=== PATIENT | female | born 1975 | race Caucasian/White ===

== ENCOUNTER 2020-06-29 04:40 | Outpatient (CLI) | payer BC, SELFPAY ==
[2020-06-29 19:32] LABS: SARS-CoV-2 RNA PCR Negative
== END 2020-06-29 04:41 | disposition home or self-care (01) ==
LOC: ANHCOVIDDT 04:41
PROVIDERS: PCP Family Medicine; Visit Provider Plastic Surgery
DX: Z01.812 Encounter for preprocedural laboratory examination (principal); Z20.822 Contact with and (suspected) exposure to COVID-19
CPT/HCPCS: C9803; U0003

== ENCOUNTER 2020-07-03 02:39 | Day surgery (SDC) | payer BC, SELFPAY ==
[2020-06-27 13:21] VITALS: BMI 36.1
[2020-07-03] VITALS (9 sets, daily range): BP systolic 92–136; BP diastolic 55–87; PULSE 50–91; RESP 12–16; TEMP 36.5–36.6; O2SAT 93–100
--- NOTE | ~2020-07-03 | XR_ITS ---
EXAMINATION: XR surgery orthopedic DATE: 07/03/2020 14:48 INDICATION: Left thumb trapezium resection TECHNIQUE: 2 fluoroscopic images of portions of the left hand were obtained during procedure performe d by Dr. Mai. Radiologist was not present for the imaging or procedure. The amount of fluoroscopy t kamran used during this procedure was 1.7 minutes. COMPARISON: None. FINDINGS: Postoperative change of likely first carpal metacarpal suspension arthroplasty with resection of the trapezium. There is suggestion of a residual small bone fragment at the resection bed. Lucency at the base of the first metacarpal suggestive of a suture anchor site. Correlate with operative history. M ild osteoarthritis at the first and second metacarpophalangeal and first interphalangeal joints. Expe cted small amount of soft tissue gas at the operative bed. IMPRESSION: 1. Fluoroscopy utilized during trapezium resection. See procedure note for further detail. Reviewed, dictated and finalized at location A. K MECHANIC IMPRESSION: 1. Fluoroscopy utilized during trapezium resection. See procedure note for furt her detail.
--- NOTE | 2020-07-03 07:40 | WPDHPUPDATE1 ---
History and Physical Update Update Date/Time: 07/03/20 07:40 History and Physical has been reviewed, including an updated exam of the patient. There are NO changes in the patient's condition. Risks, benefits, and alternatives have been discussed and questions answered. Patient agrees to proceed with procedure.
[2020-07-03] MEDS: LACTATED RINGERS 1,000 ML 30 ML IV CONT ×2 (09:33→14:55)
--- NOTE | 2020-07-03 10:04 | SUR.PREOP ---
Discussed delay with patient approx 1 hour. Patient called her and told him also.
--- NOTE | 2020-07-03 11:17 | SUR.PREOP ---
Up to bathroom. Discussed continued delay now of 1 1/2 hours.
--- NOTE | 2020-07-03 12:09 | P.PNAN_ITS ---
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 Patient Data Age: 45 Gender: F Height: 5 ft 5 in Weight: 101.5 kg Last Vital Signs Temp 97.8 F 07/03/20 09:38 Pulse 50 L 07/03/20 09:38 Resp 16 07/03/20 09:38 BP 116/77 07/03/20 09:38 Pulse Ox 100 07/03/20 09:38 Allergies Allergy/AdvReac Type Severity Reaction Status Date / Time No Known Allergies Allergy Verified 07/03/20 09:12 Home Medications Medication Instructions Recorded Confirmed Type eletriptan 40 mg PO DAILY PRN 06/27/20 07/03/20 History ergocalciferol (vitamin D2) 1,250 mcg PO MONTHLY 06/27/20 06/27/20 History [Vitamin D2] ergocalciferol (vitamin D2) 400 unit PO DAILY 06/27/20 07/03/20 History [Vitamin D2] estradiol 1 mg PO DAILY 06/27/20 07/03/20 History mecobalamin (vitamin B12) 1,000 mcg PO DAILY 06/27/20 07/03/20 History multivitamin [Daily Multivitamin] 1 tablet PO DAILY 06/27/20 07/03/20 History pantoprazole 40 mg PO BID 06/27/20 07/03/20 History Patient hx anesthesia problems: none Family hx anesthesia problems: none [facility] Past Medical History Medical History (Updated 07/03/20 @ 12:12 by Shaji Nobles MD) GERD (gastroesophageal reflux disease) Seizure none since 2009 Surgical History Surgical History (Updated 07/03/20 @ 12:12 by Shaji Nobles MD) History of gastric bypass Social History Social History Smoking status: Never smoker Living arrangements: with family Spiritual care concerns: No Anes - Eval Final PreProcedure Day of Procedure 07/03/20 12:09 Patient weight: obese Heart: regular rate and rhythm Lungs: clear to auscultation Airway: Mallampati scale class II Neurological: alert and oriented Last oral intake: >/= 8 hours ASA classification: III Emergent: no Anesthetic plan: proceed Anesthesia type and monitoring: general LMA and standard monitoring Informed Consent: The patient's anesthetic plan and its attendant risks and b enefits were discussed with the patient/family/POA. Questions were solicited and answers provided to the satisfaction of the patient/family/POA.
[2020-07-03] MEDS: ACETAMINOPHEN 500 MG TABLET 1000 MG PO (12:20)
[2020-07-03] MEDS: ceFAZolin SODIUM 1 GM VIAL 2 GM IV PUSH (12:33)
[2020-07-03] MEDS: LIDO 1%/EPINEPHRINE 1:100,000 50 ML VIAL INFILTRATE (12:57)
--- NOTE | 2020-07-03 15:15 | P.OPB_ITS ---
Procedure Note - Brief Procedure Note - Brief Date of procedure: 07/03/20 Pre-op diagnosis: Left First CMC Joint OA Post-op diagnosis: same Procedure performed: Left trapezium resection arthroplasty with InternalBrace. Anesthesia: GETA Surgeon: Israel Mai MD Inspector And Clerk: Donte Estimated blood loss (mL): 5 Tourniquet time (min): 70 Drains: No Packing: No Pathology: none sent Complications: No immediate complications Condition: stable Disposition: PACU
[2020-07-03] MEDS: fentaNYL CITRATE INJ (*CRX) 100 MCG/2 ML VIAL 25 MCG IV PUSH ×4 (15:36→15:49)
[2020-07-03] MEDS: oxyCODONE HCL (*CRX) 5 MG TAB IR PO (16:55)
[2020-07-03] MEDS: HYDROcodone/acetaminophen (*CRX) 5-325 MG TABLET 1 TAB PO (17:46)
--- NOTE | 2020-07-03 19:35 | P.OP_ITS ---
Procedure Note - Detailed Date of procedure: 07/03/20 Pre-op diagnosis: Left First CMC Joint OA Post-op diagnosis: same Procedure performed: Left trapezium resection arthroplasty with Arthrex internalBrace Description of procedure: The patient's left wrist was marked as she waited in the holding area. She was taken to the operating room and placed supine on the operating table. A time-out was held and confirmed she was given general end otracheal anesthesia. The extremity was prepped and draped in usual fashion. The site was carefully marked for our incision. This area was infiltrated with 1% lidocaine with epinephrine. The tourniquet was inflated to 250 mmHg. The incision was made as marked and dissection was carried bluntly through this subcutaneous tissue taking care to isolate and protect cutaneous nerves. The carpal metacarpal joint joint was incised between the extensor pollicis brevis and the abductor pollicis longus. A couple of very large osteophytes were removed. These had been noted on x-ray. The trapezium was dissected around its periphery until it could be lifted out in pieces. C-arm images confirmed the adequate trapeziectomy. Dissection of the radial base of the 2nd metacarpal exposed the point of anchor placement. The plan was to use a new device for placement of the internal brace. This failed on 1st attempt to lodge the anchor into the medullary canal. On the 2nd attempt the far cortex of the metacarpal was opened with the appropriate drill and the ?all suture anchor was successfully placed. The appropriate site at the base of the 1st metacarpal was drilled and the anchor lock placed over the internal brace which consisted of two 0 fiber wires. This successfully stabilize the metacarpal. The capsule was repaired with 3-0 Vicryl sutures. Thenar muscles were reattached to the extensor tendons. A bulky soft bandage with a thumb spica splint was applied and the patient was discharged from the operating room stable condition. She had been given 2 g of Ancef preop as well as Tylenol 1000 mg by mouth. She is discharged home with instructions in wound care and follow-up her 1st dressing change will be in my office in approximately 5 day. She was discharged with a prescription for hydrocodone. Surgeon: Israel Mai MD
== END 2020-07-03 18:30 | disposition home or self-care (01) ==
PROVIDERS: PCP Family Medicine; Visit Provider Plastic Surgery
PROC: (CPT 25447; principal; 2020-07-03 11:00)
DX: M18.12 Unilateral primary osteoarthritis of first carpometacarpal joint, left hand (principal); K21.9 Gastro-esophageal reflux disease without esophagitis; G40.909 Epilepsy, unspecified, not intractable, without status epilepticus; E66.9 Obesity, unspecified; Z68.37 Body mass index [BMI] 37.0-37.9, adult
CPT/HCPCS: 25447; A9270; C1713; C9803; J0690; J1100; J1170; J2250; J2405; J2704; J3010; J7120; U0003

== ENCOUNTER 2021-04-15 06:33 | Outpatient (CLI) | payer BC, SELFPAY ==
--- NOTE | ~2021-04-15 | MR_ITS ---
EXAMINATION: MR lumbar spine wo con DATE: 04/15/2021 08:25 INDICATION: Lumbar radiculopathy. TECHNIQUE: Magnetic resonance imaging (MRI) of the lumbar spine was performed without intravenous con trast. Sequences included sagittal T2-weighted FSE, sagittal T2-weighted FS FSE, sagittal T1-weighted FSE, and axial T2-weighted FSE. COMPARISON: Lumbar spine radiographs 10/09/2014 FINDINGS: There is 6 degrees levocurvature of lumbar spine. There are Schmorl's nodes at most levels. There is mild chronic anterior wedging of T11 and T12 vertebral bodies. There is severely decreased disc height at L3-L4, L4-L5, and L5-S1 with endplate remodeling. The distal spinal cord signal intens ity is normal. The conus medullaris is at T12-L1. The following disc levels are specifically discusse d: L1-L2: The disc does not extend beyond the endplate margin. There is mild bilateral facet joint osteo arthritis. There is no neural foraminal stenosis. There is no central canal stenosis. L2-L3: The disc does not extend beyond the endplate margin. There is mild bilateral facet joint osteo arthritis. There is no neural foraminal stenosis. There is no central canal stenosis. L3-L4: The disc is bulging and has an annular fissure. There is mild bilateral facet joint osteoarthr itis. There is mild bilateral neural foraminal stenosis. There is mild central canal stenosis. L4-L5: The disc is bulging and has an annular fissure. There is severe bilateral facet joint osteoart hritis. There is moderate right and mild left neural foraminal stenosis. There is no central canal st enosis. L5-S1: The disc is bulging and has an annular fissure. There is severe bilateral facet joint osteoart hritis. There is a chronic left L5 pars defect. There are changes of left hemilaminotomy. There is mi ld right and moderate left neural foraminal stenosis. There is mild central canal stenosis. IMPRESSION: 1. Severe lumbar spondylosis. 2. Chronic left L5 pars defect. Reviewed, dictated and finalized at location A.
== END 2021-04-15 06:34 | disposition home or self-care (01) ==
PROVIDERS: PCP Family Medicine
DX: M54.16 Radiculopathy, lumbar region (principal); M47.816 Spondylosis without myelopathy or radiculopathy, lumbar region; M51.86 Other intervertebral disc disorders, lumbar region
CPT/HCPCS: 72148

== ENCOUNTER 2021-09-16 08:31 | Outpatient (CLI) | payer BC, SELFPAY ==
--- NOTE | ~2021-09-16 | MR_ITS ---
EXAMINATION: MR ankle LT wo/w con DATE: 09/16/2021 10:24 INDICATION: Disorder. Stress fracture with lateral left ankle pain TECHNIQUE: Magnetic resonance imaging (MRI) of the left ankle was performed without intravenous contr ast. Sequences included sagittal, coronal, and axial proton-density weighted fast spin echo without a nd with fat saturation. COMPARISON: None. FINDINGS: Medial ankle ligaments: The superficial deltoid ligaments as well as the spring ligament are normal. There is loss of the nor ekta more sharply defined striated pattern of the deep deltoid ligament without significant surround ing edema consistent with scarring related to chronic sprain. Lateral ankle ligaments: The anterior and posterior inferior tibiofibular ligaments are normal. The calcaneofibular and licensing court magistrate ior talofibular ligaments are normal. There is mild thickening without increased ligament signal or s urrounding edema at the anterior talofibular ligament consistent with additional scarring related to chronic sprain. Tendons: Achilles tendon is normal. The peroneus longus and brevis tendons are normal. The tibialis anterior a nd extensor hallucis longus and extensor digitorum longus tendons are normal. The tibialis posterior, flexor digitorum longus and flexor hallucis longus tendons are normal. Plantar fascia: Mild thickening of the proximal plantar aponeurosis with large plantar calcaneal spur at its calcanea l origin. No surrounding edema to suggest acute plantar fasciitis. Bones/other: Bone alignment is normal. No fracture or stress reaction. Polyarticular osteoarthritis, mild to moder ate severity with subarticular cystic and edema-like marrow signal change at the navicular cuneiform joint and mild at the talonavicular joint and first-fourth tarsal metatarsal joints. There is some me tallic magnetic field artifact centered superficially, at or near the skin surface at the dorsum of t he midfoot which is of indeterminate etiology or significance. Correlate for history of prior penetra ting trauma or surgery at this location. No abnormally enhancing masses identified. Fluid: Physiologic amount fluid in the joint space. There is a small loculated fluid situated along the dist al margin but not appearing to develop the peroneus longus tendon at its entrance to the groove of th e cuboid iliana which appears more likely to represent a ganglion cyst communicating with the fifth t arsal metatarsal joint rather than peroneal tenosynovitis. No bursitis, tenosynovitis or other abnorm al fluid collections. IMPRESSION: 1. No stress fracture/reaction or other acute osseous abnormality. 2. Mild scarring consistent with chronic sprains of the deep deltoid and anterior talofibular ligamen ts. 3. The articular osteoarthritis, mild to moderate at the naviculocuneiform and mild at the talonavicu lar and several tarsal metatarsal joints. 4. Small loculated fluid collection along the peroneal tendon at the cuboid iliana which appears more likely to represent a ganglion cyst arising from the fifth tarsal metatarsal joint rather than peron eal tenosynovitis. Reviewed, dictated and finalized at location A. IMPRESSION: 1. No stress fracture/reaction or other acute osseous abnormality. 2. Mild scarring consistent with chronic sprains of the deep deltoid and anteri or talofibular ligaments. 3. The articular osteoarthritis, mild to moderate at the naviculocuneiform and mild at the talonavicular and several tarsal metatarsal joints. 4. Small loculated fluid collection along the peroneal tendon at the cuboid pul david which appears more likely to represent a ganglion cyst arising from the fif th tarsal metatarsal joint rather than peroneal tenosynovitis.
[2021-09-16 09:42] LABS: Estimated Glomerular Filt Rate > 60
== END 2021-09-16 08:32 | disposition home or self-care (01) ==
LOC: ANHIMG 08:34
PROVIDERS: PCP Family Medicine; Visit Provider Podiatrist Foot & Ankle Surgery
DX: M89.8X7 Other specified disorders of bone, ankle and foot (principal); M19.072 Primary osteoarthritis, left ankle and foot
CPT/HCPCS: 73723; A9577

== ENCOUNTER 2022-02-02 09:36 | Outpatient (CLI) | payer BC, SELFPAY ==
--- NOTE | ~2022-02-02 | XR_ITS ---
EXAMINATION: XR shoulder LT min 2V INDICATION: Left shoulder pain TECHNIQUE: Three views of the left shoulder are submitted. COMPARISON: None FINDINGS: Normal alignment. No fracture. Glenohumeral and acromioclavicular joint spaces are normal. Soft tissues are unremarkable. IMPRESSION: 1. No acute osseous abnormality. Reviewed, dictated and finalized at location A.
== END 2022-02-02 09:37 | disposition home or self-care (01) ==
LOC: CHSIMG 09:38
PROVIDERS: PCP Family Medicine; Visit Provider Orthopaedic Surgery
DX: M25.512 Pain in left shoulder (principal)
CPT/HCPCS: 73030

== ENCOUNTER 2022-09-24 09:40 | Outpatient (CLI) | payer BC, SELFPAY ==
--- NOTE | 2022-09-24 11:30 | NEURO_ITS ---
Impression: # Complains of left foot pain,at the site of old ankle injury. # Normal nerve conduction study. # Normal needle/EMG exam. # Clinical correlation recommended. Motor Nerve Conduction Lower Extremities Peroneal Nerve Conduction Velocity (m/sec) Terminal Latency (msec) Response Voltage(mV) Popliteal space-Ankle Ankle Extensor Dig Brevis Popliteal space Ankle Right 49 4.0 2 2 Left 47 4.3 1 1 Tibial Nerve Conduction Velocity (m/sec) Terminal Latency (msec) Response Voltage(mV) Popliteal space-Ankle Ankle-Extensor Dig Brevis Popliteal space Ankle Right 47 4.2 2 2 Left 51 4.7 2 3 F-waves Peroneal Nerve (ms) Tibial Nerve (ms) Right 49.2 50.5 Left 48.8 51.5 Sensory Nerve Conduction Lower Extremities Sural Nerve Stimulation Terminal Latency (msec) Ankle Response Voltage (uV) Ankle Response Velocity (m/sec) Right 3.7 13 43 Left 3.9 5 42 Superficial Peroneal Nerve Stimulation Terminal Latency (msec) Ankle Response Voltage (uV) Ankle Response Velocity (m/sec) Right 3.5 12 46 Left 3.1 11 52 Left Right Muscles Examined Fibrillation Fasciculation Scarcity Voltage Duration Left Right Left Right Left Right Left Right Left Right X X Ant Tibialis X X Gastroc X X Fibularis Long X X Flex Dig Long X X Ext Dig Brev Abd Hallucis Quadriceps Paraspinals MTDD
== END 2022-09-24 09:41 | disposition home or self-care (01) ==
PROVIDERS: PCP Family Medicine; Visit Provider Podiatrist Foot & Ankle Surgery
DX: G58.8 Other specified mononeuropathies (principal)
CPT/HCPCS: 95886; 95910

== ENCOUNTER 2024-03-01 01:26 | Day surgery (SDC) | payer BC, SELFPAY ==
[2024-02-08 14:59] VITALS: BMI 30.4
[2024-03-01 11:00] VITALS: BP 125/61; PULSE 61; RESP 16; O2SAT 100
[2024-03-01] MEDS: LACTATED RINGERS 1,000 ML 150 ML IV CONT (11:19)
--- NOTE | 2024-03-01 11:40 | WPDANESEPPF ---
Anes - Initial Pre Proc Eval Procedure: Operation Date: 03/01/24 12:30 Proposed Procedures p Esophagogastroduodenoscopy & Colonoscopy - Yaniv Wright MD Date/Time: 03/01/24 11:40 Surgeon: Yaniv Wright MD Pre Op Diagnosis: Melgar's, Abd. pain, Gastroenteritis/colitis,GERD Patient Data Age: 48 Gender: F Height: 1.65 m Weight: 83.6 kg Allergies Allergy/AdvReac Type Severity Reaction Status Date / Time NSAIDS (Non-Steroidal Allergy Unknown Unknown Verified 03/01/24 11:09 Anti-Inflamma Home Medications Medication Instructions Recorded Confirmed Type eletriptan 40 mg tablet 40 mg PO DAILY PRN Migraine 06/27/20 03/01/24 History Headache ergocalciferol (vitamin D2) 400 400 unit PO DAILY 06/27/20 03/01/24 History unit capsule mecobalamin (vitamin B12) 1,000 1,000 mcg PO DAILY 06/27/20 03/01/24 History mcg chewable tablet multivitamin 1 tablet PO DAILY 06/27/20 03/01/24 History irbesartan 150 mg tablet 75 mg PO DAILY 02/05/22 03/01/24 History semaglutide (weight loss) [Wegovy] 2.4 mg subcut WEEKLY 02/05/22 03/01/24 History sertraline 50 mg tablet 50 mg PO DAILY 02/05/22 03/01/24 History colestipol 1 gram tablet (Colestid) 1 g PO BID #60 tabs 01/11/24 03/01/24 Rx estradiol 0.5 mg/0.5 gram (0.1 %) 1 packet transdermal DAILY 01/11/24 03/01/24 History transdermal gel packet lansoprazole 30 mg capsule,delayed 30 mg PO BID #60 caps 01/11/24 03/01/24 Rx release Patient hx anesthesia problems: none Family hx anesthesia problems: none Results Review: All pre-operative results and documents have been reviewed as part of the pre-operative evaluation. [facility] Past Medical History Medical History (Updated 01/25/24 @ 16:02 by Jose Chi MD) Anxiety FH: total abdominal hysterectomy and bilateral salpingo-oophorectomy GERD (gastroesophageal reflux disease) Hearing loss HTN (hypertension) Impingement syndrome, shoulder, left Left shoulder pain Seizure none since 2009 Tendinitis of left rotator cuff Vertigo Surgical History Surgical History (Updated 01/11/24 @ 15:43 by Sintia Ahumada APRN) History of carpal tunnel release 2005 History of cholecystectomy [address] Oliver History of gastric bypass 2015 History of hysterectomy [address] Powers Family History Family History Other Arthritis Asthma Heart disease Hypertension Social History Social History Smoking status: Never smoker Alcohol intake: never Substance use: never Substance use type: does not use Living arrangements: with family Occupation/Education: occupation Gender identity (if verbalized by the patient): Female Spiritual care concerns: No Anes - Eval Final PreProcedure Day of Procedure 03/01/24 11:40 Patient weight: obese Heart: regular rate and rhythm Lungs: clear to auscultation Neurological: alert and oriented Last oral intake: >/= 8 hours Emergent: no Anesthetic plan: proceed Anesthesia type and monitoring: general GIVS and standard monitoring Results Review: All pre-operative results and documents have been reviewed as part of the pre-operative evaluation. Informed Consent: The patient's anesthetic plan and its attendant risks and benefits were discussed with the patient/family/POA. Questions were solicited and answers provided to the satisfaction of the patient/family/POA.
--- NOTE | 2024-03-01 11:43 | PM.HPGS ---
History of Present Illness History of Present Illness Consent: Risks, benefits, and alternatives have been discussed and questions answered. Patient agrees to proceed with procedure. Chief complaint: Pacheco's, Abd. pain, Gastroenteritis/colitis,GERD Narrative: Rhys Iyer is a 48 year old female here for egd and colonoscopy, she had gastric sleeve (2014), cholecystectomy (2009), and total hysterectomy with chronic diarrhea and fecal incontinence, cholestipol not helping, stool sample for EPI and calprotectin normal. She was told that last egd possible Pacheco's. using now lansoprazole. Review of Systems Review of Systems: All systems reviewed & are unremarkable except as noted in HPI and below PMFSH Past Medical History Medical History (Updated 01/25/24 @ 16:02 by Jose Chi MD) Anxiety FH: total abdominal hysterectomy and bilateral salpingo-oophorectomy GERD (gastroesophageal reflux disease) Hearing loss HTN (hypertension) Impingement syndrome, shoulder, left Left shoulder pain Seizure none since 2009 Tendinitis of left rotator cuff Vertigo Surgical History Surgical History (Updated 01/11/24 @ 15:43 by Sintia Ahumada, DOTTIE) History of carpal tunnel release 2005 History of cholecystectomy [address] Oliver History of gastric bypass 2014 History of hysterectomy [address] Powers Family History Family History Other Arthritis Asthma Heart disease Hypertension Social History Social History Smoking status: Never smoker Alcohol intake: never Substance use: never Substance use type: does not use Living arrangements: with family Occupation/Education: occupation Gender identity (if verbalized by the patient): Female Spiritual care concerns: No Meds Home Medications and Allergies Home Medications Medication Instructions Recorded Confirmed Type eletriptan 40 mg tablet 40 mg PO DAILY PRN Migraine 06/27/20 03/01/24 History Headache ergocalciferol (vitamin D2) 400 400 unit PO DAILY 06/27/20 03/01/24 History unit capsule mecobalamin (vitamin B12) 1,000 1,000 mcg PO DAILY 06/27/20 03/01/24 History mcg chewable tablet multivitamin 1 tablet PO DAILY 06/27/20 03/01/24 History irbesartan 150 mg tablet 75 mg PO DAILY 02/05/22 03/01/24 History semaglutide (weight loss) [Wegovy] 2.4 mg subcut WEEKLY 02/05/22 03/01/24 History sertraline 50 mg tablet 50 mg PO DAILY 02/05/22 03/01/24 History colestipol 1 gram tablet (Colestid) 1 g PO BID #60 tabs 01/11/24 03/01/24 Rx estradiol 0.5 mg/0.5 gram (0.1 %) 1 packet transdermal DAILY 01/11/24 03/01/24 History transdermal gel packet lansoprazole 30 mg capsule,delayed 30 mg PO BID #60 caps 01/11/24 03/01/24 Rx release Allergies Allergy/AdvReac Type Severity Reaction Status Date / Time NSAIDS (Non-Steroidal Allergy Unknown Unknown Verified 03/01/24 11:09 Anti-Inflamma Exam Const: General: comfortable and no acute distress HENMT: Face/Nose/Sinus: Normal nares present Eyes: General: appearance normal, both eyes and all related structures Neck: Neck: no JVD Resp: Auscultation: clear to auscultation bilaterally Cardio: Rate: regular rate Rhythm: regular rhythm GI: Inspection: non-distended GI Palp: Yes Soft to palpation Skin: General skin exam: normal color Neuro: General: gait normal Speech: normal speech Extrem: General: normal to inspection Psych: Mental Status: mental status grossly normal Assessment and Plan Assessment and plan (1) GERD (gastroesophageal reflux disease): Code(s): K21.9 - Gastro-esophageal reflux disease without esophagitis Status: Acute Assessment and Plan: egd with bx on ppi will check if pacheco's (2) Chronic diarrhea: Code(s): K52.9 - Noninfective gastroenteritis and colitis, unspecified Status: Acute
--- NOTE | 2024-03-01 11:55 | SUR.OPER ---
EGD [id number]. Colon start time 1157.
[2024-03-01 12:12] VITALS: BP 102/43; PULSE 72; RESP 18; O2SAT 97
[2024-03-01 12:22] VITALS: BP 92/53; PULSE 60; RESP 18; O2SAT 100
[2024-03-01 12:32] VITALS: BP 100/56; PULSE 55; RESP 18; O2SAT 100
== END 2024-03-01 12:50 | disposition home or self-care (01) ==
PROVIDERS: PCP Family Medicine; Referring Provider Nurse Practitioner; Visit Provider Internal Medicine Gastroenterology
PROC: 0DJ08ZZ Inspection of Upper Intestinal Tract, Via Natural or Artificial Opening Endoscopic (ICD-10-PCS; CPT 43235; principal; 2024-03-01 12:30)
DX: K29.50 Unspecified chronic gastritis without bleeding (principal); K29.80 Duodenitis without bleeding; D12.3 Benign neoplasm of transverse colon; K64.8 Other hemorrhoids; R19.7 Diarrhea, unspecified; Z98.84 Bariatric surgery status; I10 Essential (primary) hypertension; K21.9 Gastro-esophageal reflux disease without esophagitis; F41.9 Anxiety disorder, unspecified; Z79.85 Long-term (current) use of injectable non-insulin antidiabetic drugs; E66.9 Obesity, unspecified; Z68.30 Body mass index [BMI] 30.0-30.9, adult
CPT/HCPCS: 45385; 45380; 43239; 88305; J2001; J2704; J7120

== ENCOUNTER 2024-05-10 12:49 | Outpatient (CLI) | payer BC, SELFPAY ==
--- NOTE | 2024-05-10 13:25 | NEURO_ITS ---
Impression: # Complains of right hand numbness # Normal Nerve Conduction Study. # No Carpal Tunnel Syndrome or ulnar neuropathy. # Normal needle/EMG exam. Nerve Conduction Studies Anti Sensory Summary Table Stim Site NR Peak (ms) P-T Amp (?V) Site1 Site2 Delta-P (ms) Dist (cm) Everardo (m/s) Right Median Anti Sensory (2-3nd Digit) Wrist 2.6 87.0 Wrist 2-3nd Digit 2.6 14.0 54 Wrist 2.5 85.1 Wrist 2-3nd Digit 2.6 14.0 54 Right Radial Anti Sensory (Base 1st Digit) Wrist 2.3 16.0 Wrist Base 1st Digit 2.3 0.0 Right Ulnar Anti Sensory (5th Digit) Wrist 2.4 61.2 Wrist 5th Digit 2.4 14.0 58 Motor Summary Table Stim Site NR Onset (ms) O-P Amp (mV) Site1 Site2 Delta-0 (ms) Dist (cm) Everardo (m/s) Right Median Motor (Abd Poll Brev) Wrist 3.3 10.8 Elbow Wrist 5.5 29.0 53 Elbow 8.8 11.5 Right Ulnar Motor (Abd Dig Minimi) Wrist 2.1 4.6 A Elbow Wrist 4.9 27.0 55 A Elbow 7.0 5.5 F Wave Studies NR F-Lat (ms) L-R F-Lat (ms) Right Median (Mrkrs) (Abd Poll Brev) 26.96 Right Ulnar (Mrkrs) (Abd Dig Min) 24.18 EMG Side Muscle Nerve Root Ins Act Fibs Amp Dur Recrt Comment Right 1stDorInt Ulnar C8-T1 Nml Nml Nml Nml Nml Right Ext Indicis Radial (Post Int) C7-8 Nml Nml Nml Nml Nml Right Ext Digitorum Radial (Post Int) C7-8 Nml Nml Nml Nml Nml Right BrachioRad Radial C5-6 Nml Nml Nml Nml Nml Right PronatorTeres Median C6-7 Nml Nml Nml Nml Nml Right Abd Poll Brev Median C8-T1 Nml Nml Nml Nml Nml Right ABD Dig Min Ulnar C8-T1 Nml Nml Nml Nml Nml MTDD
--- NOTE | 2024-05-10 14:30 | NEURO_ITS ---
Impression: # Complains of right hand and finger numbness. Non-diabetic. # Normal Nerve Conduction Study. # No Carpal Tunnel Syndrome or ulnar neuropathy. # Ulnar to median cross innervation noted. # Normal needle/EMG exam. Nerve Conduction Studies Anti Sensory Summary Table Stim Site NR Peak (ms) P-T Amp (?V) Site1 Site2 Delta-P (ms) Dist (cm) Everardo (m/s) Right Median Anti Sensory (2-3nd Digit) Wrist 2.6 87.0 Wrist 2-3nd Digit 2.6 14.0 54 Wrist 2.5 85.1 Wrist 2-3nd Digit 2.6 14.0 54 Right Radial Anti Sensory (Base 1st Digit) Wrist 2.3 16.0 Wrist Base 1st Digit 2.3 0.0 Right Ulnar Anti Sensory (5th Digit) Wrist 2.4 61.2 Wrist 5th Digit 2.4 14.0 58 Motor Summary Table Stim Site NR Onset (ms) O-P Amp (mV) Site1 Site2 Delta-0 (ms) Dist (cm) Everardo (m/s) Right Median Motor (Abd Poll Brev) Wrist 3.3 10.8 Elbow Wrist 5.5 29.0 53 Elbow 8.8 11.5 Right Ulnar Motor (Abd Dig Minimi) Wrist 2.1 4.6 A Elbow Wrist 4.9 27.0 55 A Elbow 7.0 5.5 F Wave Studies NR F-Lat (ms) L-R F-Lat (ms) Right Median (Mrkrs) (Abd Poll Brev) 26.96 Right Ulnar (Mrkrs) (Abd Dig Min) 24.18 EMG Side Muscle Nerve Root Ins Act Fibs Amp Dur Recrt Comment Right 1stDorInt Ulnar C8-T1 Nml Nml Nml Nml Nml Right Ext Indicis Radial (Post Int) C7-8 Nml Nml Nml Nml Nml Right Ext Digitorum Radial (Post Int) C7-8 Nml Nml Nml Nml Nml Right BrachioRad Radial C5-6 Nml Nml Nml Nml Nml Right PronatorTeres Median C6-7 Nml Nml Nml Nml Nml Right Abd Poll Brev Median C8-T1 Nml Nml Nml Nml Nml Right ABD Dig Min Ulnar C8-T1 Nml Nml Nml Nml Nml MTDD
== END 2024-05-10 12:50 | disposition home or self-care (01) ==
LOC: ANHNEURO 12:50
PROVIDERS: PCP Family Medicine; Visit Provider Plastic Surgery
DX: G56.01 Carpal tunnel syndrome, right upper limb (principal); G56.21 Lesion of ulnar nerve, right upper limb
CPT/HCPCS: 95886; 95909

== ENCOUNTER 2024-09-27 00:04 | Day surgery (SDC) | payer BC, SELFPAY ==
[2024-09-19 08:23] VITALS: BMI 30.8
--- NOTE | 2024-09-19 08:30 | PC.NURSE ---
Report to the Outpatient Waiting Room, entrance under the green pavilion located off [facility], at time _0630_ on date _[phone]_. Planned Procedure Time: _0830_.? Time changes happen often and if your time is changed the preop area will call you the afternoon before. - You and your visitor will be asked to self-screen and do not enter if you have any COVID symptoms. Please call surgeon if you need to reschedule. - A mask is optional within the hospital at this time. - No food or drink from midnight until time of surgery and no smoking, or chewing tobacco (or any form of nicotine). No chewing gum, candy or mints. Take only the following medications with a SIP of water on the morning of surgery: ____Sertraline DO NOT STOP ANY OF YOUR OTHER PRESCRIPTION MEDICATIONS PRIOR TO SURGERY EXCEPT THE FOLLOWING Hold all vitamins and supplements for 3 days per anesthesiologist. Medications to discontinue per physician Wegovy Date to take last dose Stop now Please no make-up, nail danish, hairspray, perfume, deodorant, or body powder the day of surgery.? No jewelry (including any body piercings) or valuables the day of surgery, leave them at home.? Please take a shower or bath the night before, or the morning of, surgery with an antibacterial soap.? Wear comfortable, loose fitting clothing.? - Jewelry must be removed prior to entering the operating room.? Rings and piercings that are not removed may be cut off. - The hospital will not accept responsibility for valuables.? - Please leave all valuables, including medications, at home the day of surgery. If you are going home after surgery, a licensed power truck driver must drive you home.? - NO public transportation without another adult if you receive anesthesia. - We recommend that an adult stay with you for 24 hours following discharge. - We also recommend that you do not drive, make important decision, drink alcoholic beverages, or take any drugs that were not prescribed by your health care provider for at least 24 hours after your discharge time. Follow any additional instructions given to you from your surgeon. Telephone instructions given to __Dorcus__and asked if any additional questions and then verbalized understanding. Patient advised to call surgeon office or pre surgery nurse liaison [phone] if any additional questions.
--- OUTSIDE RECORDS SUMMARY | 2024-09-27 00:06 | XMS_ITS | Encounter Summary ---
Author Organization [facility] Address [address] [place] [address] Care Team Providers Care Product Development Chemist Name Role Phone Darshan Mendoza MD Primary Care Provider [phone] Encounter Details Date Type Department Care Team (Late st Contact Info) Description 02/08/2020 [employer] [place] [address] Silviano Nguyen MD [address] [place] [address] Visit Follow Up Social History Tobacco Use Types Packs/Day Years Used Date Smoking Tobacco: Never Smokeless Tobacco: Never Alcohol Use Standard Drinks/Week Comments No 0 (1 standard drink = 0.6 oz pur e alcohol) AUDIT-C Answer Date Recorded Frequency of Alcohol Consumption Never 02/09/2019 Average Number of Drinks Not on file 019 Frequency of Binge Drinking Not on file 01/20 Comments No Sex and Gender Information Value Date Recorded Sex Assigned at Female 07/06/2024 5:18 PM MANAGER WOUND CARE Legal Sex Female 9:05 PM MANAGER WOUND CARE Gender Identity Not on file Sexual Orientation Not on file COVID-19 Exposure Response Date Recorded In the last month, have you been in contact with someone who was confirmed or suspected to have Coronavirus / COVID-19? 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
--- OUTSIDE RECORDS SUMMARY | 2024-09-27 00:06 | XMS_ITS | Encounter Summary ---
Author Organization [facility] Address [address] [place] [address] Care Team Providers Care Painter And Paperhanger Apprentice Name Role Phone Darshan Mendoza MD Primary Care Provider [phone] Encounter Details Date Type Department Care Team (Late st Contact Info) Description 08/01/2024 [employer] Message Enc [facility] [address] [address] Blanca Antunez PA [address] [place] [address] Visit Follow Up Social History Tobacco Use [...] Sex Assigned at Female 07/06/2024 5:18 PM STATISTICAL CLERK ADVERTISING Legal Sex Female 9:05 PM STATISTICAL CLERK ADVERTISING Gender Identity Not on file Sexual Orientation Not on file documented as of this encounter Plan of Treatment Not on file documented as of this encounter Visit Diagnoses Not on filedocumented in this encounter Additional Health Concerns Infection Onset Date Last Indicated Resolved Time 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
--- OUTSIDE RECORDS SUMMARY | 2024-09-27 00:06 | XMS_ITS | Referral Summary ---
Author Organization [facility] [employer] Address [address] [place] [address] Care Team Providers Care Branch Lending Officer Name Role Phone Darshan Mendoza MD Primary Care Provider [phone] Eli Baer DPT Unavailable [phone] Misty Barroso DPM Unavailable [phone] Allergies Active Allergy Reactions Criticality Noted Date Comments Nsaids (Non-Steroidal Anti-Inflammatory Drug) Other (See comments) Low 10/02/2022 Patient had gastric sleeve surgery and can't take them now Medications multivitamin tablet Take 1 tablet by mouth daily Active VITAMIN D2 1,250 mcg (50,000 unit) capsule Take 1 capsule (50,000 Units total) by mouth every 30 (thirty) days 0 Active estradiol (ESTRACE) 1 mg tablet TK /2 TO 1 T PO D [address] (PROTONIX) 40 mg EC tablet TK 1 T PO BID 0 Active eletriptan (RELPAX) 40 mg tablet Take 1 tablet (40 mg total) by mouth once as needed 9 Active Wegovy 2.4 mg/0.75 mL auto-injector INJECT 2.4 MG UNDER THE SKIN ONCE WEEKLY 3 Active irbesartan (AVAPRO) 150 mg tablet 3 Active sertraline (ZOLOFT) 50 mg tablet Take 1 tablet (50 mg total) by mouth daily 4 Active estradioL (Estrace) 0.01 % (0.1 mg/gram) vaginal cream Apply 06/24 applicator (1g) to the vagina 2-3 times per week (such as Wednesday//Wednesday) 42.5 g 3 4 Active Active Problems Problem Noted Date Diagnosed Date Dermatofibroma of left lower leg 10/02/2022 Overview (10/02/2022): Added automatically from request for surgery [id number] Crushing injury of multiple sites of trunk 10/02 Overview (10/02/2022): Added automatically from request for surgery [id number] Hip pain, bilateral 07/27/2019 Pelvic floor dysfunction in female 07/27/2019 Mixed stress and urge urinary incontinence 07/27 Sarcoidosis 01/08/2016 Inflammation of sacroiliac joint 03/07/2014 Sciatica 03/07/2014 Degeneration of intervertebral disc of lumbar re gion 02/13/2014 Osteoarthritis of lumbar spine 02/13/2014 Fatigue 02/08/2014 Heartburn 02/08/2014 Seizure 02/08/2014 Lumbago 02/08/2014 Chronic pain 02/08/2014 Hypertension 08/10/2011 Obesity 10/30/2010 Social History Tobacco Use Types Packs/Day Years Used Date Smoking Tobacco: Never Smokeless Tobacco: Never Tobacco Cessation:Counseling Given: Not Answered Alcohol Use Standard Drinks/Week Comments Never 0 (1 standard drink = 0.6 oz pur e alcohol) AUDIT-C Answer Date Recorded Frequency of Alcohol Consumption Not on file 10/07/2022 Q2: How many drinks containi ng alcohol do you have on a typical day when you are drinking? Patient does not drink 3 Frequency of Binge Drinking Not on file 09/19 Exercise Vital Sign Answer Date Recorde d Days of Exercise per Week 5 days 2019 Minutes of Exercise per Session 60 min 07/27/2019 Personal Safety Answer Date Recorded Have you ever been in or are you currently in a harmful physical or emotional relationship or is someone making you feel afraid or unsafe? Denies 10/07/2022 Comments No Sex and Gender Information Value Date Recorded Sex Assigned at Not on file Legal Sex Female 8:08 PM TRAUMA REGISTRAR Gender Identity Not on file Sexual Orientation Not on file Last Filed Vital Signs Vital Sign Reading Time Taken Comments Blood Pressure 118/54 09/13/2023 9:57 AM CDT Pulse 55 10/07/2022 12:00 PM CDT Temperature 35.7 C (96.3 F) 10/07/2022 12:00 PM CDT Respiratory Rate 16 10/07/2022 12:0 0 PM CDT Oxygen Saturation 100% 10/07/2022 12: 00 PM CDT Inhaled Oxygen Concentration - - Weight 85.6 kg (188 lb 12.8 oz) 09/13/2023 9:57 AM CDT Height 165.1 cm (5' 5 ) 09/13/2023 9:57 AM CDT Body Mass Index 31.42 09/13/2023 9:57 AM CDT Plan of Treatment Not on file Medical Devices Implanted Type Area Dispute Specialist Device Identifier Shelf Expiration Date Model / Serial / Lot Stapes Right: Ear Insurance ANTHEM ACCESS ANTHEM ACCESS Advance Directives For more information, please contact: [phone] * Full Code (Latest Code Status on File) Date Activated Date Inactivated Comments 10/07/2022 11:26 AM 10/07/2022 4:58 PM Care Teams Branch Lending Officer Relationship Specialty Start Date End Date Darshan Mendoza MD [address] [place] [address] PCP - General Family Medicine 07/11/19 Eli Baer DPT [address] [facility] [address] [place] [address] Physical Therapist Physical Therapy 09/19/19 Misty Barroso DPM [address] [place] [address] Consulting Physician Foot and Ankle Surg 05/21/22
--- OUTSIDE RECORDS SUMMARY | 2024-09-27 00:06 | XMS_ITS | Encounter Summary ---
Author Organization [facility] Address [address] [place] [address] Care Team Providers Care Curator Herbarium Name Role Phone Darshan Mendoza MD Primary Care Provider [phone] Encounter Details Date Type Department Care Team (Late st Contact Info) Description 11/26/2018 Abstract SFL CONVERSION [address] [place] [address] , Generic Conversion, Social History Tobacco Use Types Packs/Day Years Used Date Smoking Tobacco: Never Assessed Comments Unknown Sex and Gender Information Value Date Recorded Sex Assigned at Female 07/06/2024 5:18 PM ANIMAL TECH Legal Sex Female 9:05 PM ANIMAL TECH Gender Identity Not on file Sexual Orientation Not on file documented as of this encounter Plan of Treatment Not on file documented as of this encounter Visit Diagnoses Not on filedocumented in this encounter Additional Health Concerns Infection Onset Date Last Indicated Resolved Time MRSA 07/06/2018 07/06/2018 documented as of this encounter Care Teams Curator Herbarium Relationship Specialty Start Date End Date Darshan Mendoza MD [address] [place] [address] PCP - General FAMILY PRACTICE 02/09/19 documented as of this encounter
--- OUTSIDE RECORDS SUMMARY | 2024-09-27 00:06 | XMS_ITS | Clinical Summary ---
Author Organization [facility] Address [facility] [place] [address] Care Team Providers Care [place] Guide Name Role Phone Carmelita Mendoza MD Primary Care Provider Allergies Active Allergy Reactions Criticality Noted Date Comments Ibuprofen GI Upset 10/05/2019 Medications Cholecalciferol (VITAMIN D) 2000 units Tab Take 1 tablet (50 mcg total) by mouth monthly. Active Cyanocobalamin (VITAMIN B 12) 500 MCG Tab Take 1 tablet by mouth daily. Active eletriptan 40 MG tablet Take 1 tablet (40 mg total) by mouth as needed. 0 Active vitamin D2, ergocalciferol, 09886 UNITS capsule Take 1 capsule (1.25 mg total) by mouth daily. 0 Active Multiple Vitamin (MULTI-VITAMIN) tablet Take 1 tablet by mouth 3 (three) times daily. Active baclofen (LIORESAL) 10 MG tablet Take 1 tablet (10 mg total) by mouth 3 (three) times daily as needed. FOR PAIN 5 Active estradiol (ESTRACE) 0.1 MG/GM vaginal cream Apply / applicator (1g) to the vagina 2-3 times per week (such as Wednesday//Wednesday) 4 Active lansoprazole (PREVACID) 30 MG capsule Take 1 capsule (30 mg total) by mouth daily. 4 Active WEGOVY 2.4 mg/dose injection (PEN) Inject 2.4 mg into the skin once a week. Wednesday 2 Active sertraline (ZOLOFT) 50 MG tablet Take 1 tablet (50 mg total) by mouth daily. Active acetaminophen CR (TYLENOL) 650 MG Tab CR 8 hr tablet Take 2 tablets (1,300 mg total) by mouth 3 (three) times daily as needed. 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 Primary osteoarthritis of fi rst carpometacarpal joint of left hand 10/05/2019 Sprain of interphalangeal north int of left thumb, initial encounter 02/16/2019 Encounters Date Type Department Care Team Description 08/15/2024 8:45 AM OPTIC FIBRE DRAWER Office Visit [address] [address] Vivien Whitt PA Shoulder Pain (LEFT) 08/15/2024 Travel 08/01/2024 11:00 AM OPTIC FIBRE DRAWER - 08/01/2024 11:59 PM OPTIC FIBRE DRAWER Hospital Encounter [facility] [address] [place] [address] Vivien Whitt PA Discharge Disposition: Home or Self Care (Routine Discharge) 08/01/2024 10:30 AM OPTIC FIBRE DRAWER Office Visit [address] [address] Vivien Whitt PA Shoulder Pain (DOI: 06/27/24 LEFT) 08/01/2024 MyChart Message Enc [address] [address] Vivien Whitt PA Visit Follow Up 08/01/2024 Travel 07/20/2024 3:52 PM OPTIC FIBRE DRAWER - 07/20/2024 11:59 PM OPTIC FIBRE DRAWER Hospital Encounter [facility] [address] [place] [address] Aida Cook FNP Discharge Disposition: Home or Self Care (Routine Discharge) 07/20/2024 Travel 07/06/2024 5:18 PM OPTIC FIBRE DRAWER - 07/06/2024 11:59 PM OPTIC FIBRE DRAWER Hospital Encounter [facility] [address] [place] [address] Carmelita Mendoza MD Discharge Disposition: Home or Self Care (Routine Discharge) 07/06/2024 Travel 07/03/2024 3:28 PM OPTIC FIBRE DRAWER - 07/03/2024 11:59 PM OPTIC FIBRE DRAWER Hospital Encounter [facility] [address] [facility] [place] [address] Aida Cook, TELEVISION REPAIR TEACHER Discharge Disposition: Home or Self Care (Routine Discharge) 07/03/2024 Travel from Last 3 Months Family History Medical History Relation Comments No Known Problems Brother Asthma Daughter 1 Miscarriages / Stillbirths Daughter 2 Cancer Father pancreatic Heart Disease Father CHF Maternal Grandfather Cancer Maternal Grandmother Anemia Mother Hypertension Mother Prostate Cancer Paternal Grandfather Ovarian Cancer Paternal Grandmother Asthma Sister 1 Crohns Disease Sister 1 Heart Disease Sister 1 Hypertension Sister 1 Hypertension Sister 2 Asthma Son Relation Status Comments Brother Alive Daughter 1 Daughter 2 Father Maternal Grandfather Maternal Grandmother Mother Alive Paternal Grandfather Paternal Grandmother Sister 1 Alive Sister 2 Alive Son Social History Tobacco Use Types Packs/Day Years Used Date Smoking Tobacco: Never Smokeless Tobacco: Never Tobacco Cessation:Counseling Given: Not Answered Alcohol Use Standard Drinks/Week Comments No 0 (1 standard drink = 0.6 oz pur e alcohol) AUDIT-C Answer Date Recorded Frequency of Alcohol Consumption Never 02/09/2019 Average Number of Drinks Not on file 019 Frequency of Binge Drinking Not on file 01/20 Comments No Sex and Gender Information Value Date Recorded Sex Assigned at Female 07/06/2024 5:18 PM OPTIC FIBRE DRAWER Legal Sex Female 9:05 PM OPTIC FIBRE DRAWER Gender Identity Not on file Sexual Orientation Not on file Last Filed Vital Signs Vital Sign Reading Time Taken Comments Blood Pressure 124/66 06/28/2024 12:00 AM OPTIC FIBRE DRAWER Pulse 63 06/27/2024 10:45 PM OPTIC FIBRE DRAWER Temperature 36.9 C (98.4 F) 06/27/2024 10:45 PM OPTIC FIBRE DRAWER Respiratory Rate 20 06/27/2024 10:45 PM OPTIC FIBRE DRAWER Oxygen Saturation 96% 06/28/2024 12:30 AM OPTIC FIBRE DRAWER Inhaled Oxygen Concentration - - Weight 83.9 kg (185 lb) 08/15/2024 8:31 AM OPTIC FIBRE DRAWER Height 165.1 cm (5' 5 ) 08/15/2024 8:31 AM OPTIC FIBRE DRAWER Body Mass Index 30.79 08/15/2024 8:31 AM OPTIC FIBRE DRAWER Plan of Treatment Health Maintenance Due Date Last Done Comments Colorectal Cancer Screening Colonoscopy (10 Years) 1973 Annual Physical 1976 Hepatitis C 1991 DTaP, Tdap and Td Vaccines (1 - Tdap) 1992 Hepatitis B Vaccines (1 of 3 - 19+ 3-dose series) 1992 Zoster Vaccines (1 of 2) 2023 COVID-19 Vaccine ( - season) 2024 Mammogram Screening 05/05/2026 05/05/2024, 02/23/2023, 09/26/2021, Additional history exists Meningococcal B Vaccine Aged Out No l onger eligible based on patient's age to complete this topic Meningococcal Vaccine Aged Out No brittny adina eligible based on patient's age to complete this topic Pneumococcal Vaccine: Pediatrics (0 to 5 Years) and At-Risk Patients (6 to 64 Years) Aged Out No longer eligible based on patient's age to complete this topic RSV Immunizations Under 20 Months Aged Out No longer eligible based on patient's age to complete this topic Procedures Procedure Name Priority Date/Time Associated Diagnosis Comments XR CERV SPINE AP+LAT 2V Routine 08/01/2024 11:06 AM OPTIC FIBRE DRAWER Cervical radiculopathy MRI SHOULDER LT WO CON Routine 07/20/2024 5:00 PM OPTIC FIBRE DRAWER Left arm pain US THYROID Routine 07/06/2024 5:35 PM OPTIC FIBRE DRAWER Thyroid nodule XR HUMERUS LT MIN 2V Routine 07/03/2024 3:41 PM OPTIC FIBRE DRAWER Left arm pain XR ELBOW LT M3V Routine 07/03/2024 3:41 PM OPTIC FIBRE DRAWER Left arm pain XR SHOULDER LT 3V Routine 07/03/2024 3:4 1 PM OPTIC FIBRE DRAWER Left arm pain MG SCREENING W MARBELLA NAZ DIGI Routine 05/05/2024 12:40 PM OPTIC FIBRE DRAWER Screening mammogram for breast cancer from Last 3 Months or Most Recently Relevant to Health Maintenance Results * XR CERV SPINE AP+LAT 2V (08/01/2024 11:06 AM OPTIC FIBRE DRAWER) Anatomical Region Laterality Modality Spine Radiographic Sagrario ging 08/01/2024 11:4 9 AM OPTIC FIBRE DRAWER Impressions 08/01/2024 11:52 AM OPTIC FIBRE DRAWER IMPRESSION: Unremarkable cervical spine. Ordered By: VIVIEN WHITT Interpreted By: Maulik Howard MD, 08/01/2024 11:49 AM Narrative 08/01/2024 11:52 AM OPTIC FIBRE DRAWER [address] [place] [address] Examination: Cervical spine x-rays, 3 views. Exam time: 08/01/2024 Clinical history: Neck pain. chronic left sided neck pain, radiates down left arm sometimes --- left shoulder pain, recent fall Comparison: 03/31/2016 Technique: AP, lateral, odontoid views of the cervical spine were obtained. Findings: Cervical spine is visualized to T1. Vertebral body heights are normal. Intervertebral disc spaces are average width. Visualized bone alignment on lateral view appears normal. Odontoid process is intact. Lateral mass of C1 is in proper articulation with C2. No prevertebral soft tissue swelling. Procedure Note Maulik Howard MD - 08/01/[address] [place] [address] Examination: Cervical spine x-rays, 3 views. Exam time: 08/01/2024 Clinical history: Neck pain. chronic left sided neck pain, radiates downleft arm sometimes --- left shoulder pain, recent fall Comparison: 03/31/2016 Technique: AP, lateral, odontoid views of the cervical spine wereobtained. Findings: Cervical spine is visualized to T1. Vertebral body heights arenormal. Intervertebral disc spaces are average width. Visualized bonealignment on lateral view appears normal. Odontoid process is intact.Lateral mass of C1 is in proper articulation with C2. No prevertebral softtissue swelling. IMPRESSION: Unremarkable cervical spine. Ordered By: VIVIEN WHITT Interpreted By: Maulik Howard MD, 08/01/2024 11:49 AM us [facility] Final Result * MRI SHOULDER LT WO CON (07/20/2024 5:00 PM OPTIC FIBRE DRAWER) Anatomical Region Laterality Modality Shoulder Magnetic Resonan ce 07/26/2024 2:04 PM OPTIC FIBRE DRAWER Impressions 07/26/2024 2:13 PM OPTIC FIBRE DRAWER IMPRESSION: Minimal increased fat sat proton density signal in the supraspinatus tendon suggesting tendinitis or tendinosis. No evidence of rotator cuff tear. Tiny glenohumeral joint effusion. Minimal arthritis acromioclavicular joint. Ordered By: AIDA COOK Interpreted By: Shaji Wasserman MD, 07/26/2024 2:04 PM Narrative 07/26/2024 2:13 PM OPTIC FIBRE DRAWER [place] [id number] [address] 07/20/2024, 1650 hours. HISTORY: Left arm pain. Decreased range of motion. Fell 06/27/2024. EXAM: MRI the left shoulder without contrast. MR imaging was performed without contrast with imaging in the axial, the oblique sagittal and oblique coronal planes utilizing T1, fat sat proton density, T2 and fat-sat T2 sequence imaging. No comparison. Correlation to radiographic imaging 07/03/2024. FINDINGS: Slight increased fat sat proton density signal in the midportion of the supraspinatus tendon suggesting some mild tendinitis or tendinosis. No evidence of rotator cuff tear. Tiny glenohumeral joint effusion. No fluid extension into the subacromial nor subdeltoid bursa. Minimal arthritis acromioclavicular joint with the arthritic spindle minimally impinging on the myotendinous junction of supraspinatus. The tendon of long head of the biceps is normally positioned in the bicipital groove of the humerus. No marrow replacement or gross bone destruction proximal humerus nor glenoid the scapula. No periarticular soft tissue mass. Procedure Note Shaji Wasserman MD - 07/26/2024 [facility] [address] [place] [address] 07/20/2024, 1650 hours. HISTORY: Left arm pain. Decreased range of motion. Fell 06/27/2024. EXAM: MRI the left shoulder without contrast. MR imaging was performed without contrast with imaging in the axial, theoblique sagittal and oblique coronal planes utilizing T1, fat sat protondensity, T2 and fat-sat T2 sequence imaging. No comparison. Correlation toradiographic imaging 07/03/2024. FINDINGS: Slight increased fat sat proton density signal in the midportionof the supraspinatus tendon suggesting some mild tendinitis or tendinosis.No evidence of rotator cuff tear. Tiny glenohumeral joint effusion. Nofluid extension into the subacromial nor subdeltoid bursa. Minimalarthritis acromioclavicular joint with the arthritic spindle minimallyimpinging on the myotendinous junction of supraspinatus. The tendon oflong head of the biceps is normally positioned in the bicipital groove ofthe humerus. No marrow replacement or gross bone destruction proximalhumerus nor glenoid the scapula. No periarticular soft tissue mass. IMPRESSION: Minimal increased fat sat proton density signal in the supraspinatustendon suggesting tendinitis or tendinosis. No evidence of rotator cufftear. Tiny glenohumeral joint effusion. Minimal arthritisacromioclavicular joint. Ordered By: AIDA COOK Interpreted By: Shaji Wasserman MD, 07/26/2024 2:04 PM us Aida Cook TELEVISION REPAIR TEACHER MRI Final Result * US THYROID (07/06/2024 5:35 PM OPTIC FIBRE DRAWER) Anatomical Region Laterality Modality Neck Ultrasound 07/07/2024 9:56 AM OPTIC FIBRE DRAWER Impressions 07/07/2024 9:59 AM OPTIC FIBRE DRAWER IMPRESSION: Multinodular thyroid goiter with hypervascularity. This indicates diffuse thyroid disease. Correlate for thyroiditis symptoms and labs. TR2 bilateral nodules are considered degenerative colloid. These are benign. Okay to do a one-year follow-up ultrasound for the thyroid disease. Ordered By: CARMELITA MENDOZA Interpreted By: Biju Mccallum MD, 07/07/2024 9:56 AM Narrative 07/07/2024 9:59 AM OPTIC FIBRE DRAWER [address] [place] [address] Examination: US THYROID Exam time: 07/06/2024 5:20 PM Indication: Prior CT T-spine showing thyroid nodule, here for ultrasound workup Comparison: CT T-spine 06/27/2024 Technique: Grayscale and color Doppler thyroid ultrasound Findings: A 1.1 cm TR 2 right thyroid nodule. 1.4 cm TR 2 left thyroid nodule corresponding to CT. Heterogeneous thyroid parenchyma echotexture and echoes without suspicious nodule. Increased vascularity in the gland. Right lobe size 5.5 x 2.3 x 1.7 cm (11.6 cc), left lobe 5.9 x 1.9 x 2.3 cm (13 cc), and isthmus 0.7 cm AP thickness. No regional adenopathy. Procedure Note Biju Mccallum MD - 07/07/[address] [place] [address] Examination: US THYROID Exam time: 07/06/2024 5:20 PM Indication: Prior CT T-spine showing thyroid nodule, here for ultrasoundworkup Comparison: CT T-spine 06/27/2024 Technique: Grayscale and color Doppler thyroid ultrasound Findings: A 1.1 cm TR 2 right thyroid nodule. 1.4 cm TR 2 left thyroidnodule corresponding to CT. Heterogeneous thyroid parenchyma echotextureand echoes without suspicious nodule. Increased vascularity in the gland.Right lobe size 5.5 x 2.3 x 1.7 cm (11.6 cc), left lobe 5.9 x 1.9 x 2.3 cm(13 cc), and isthmus 0.7 cm AP thickness. No regional adenopathy. IMPRESSION: Multinodular thyroid goiter with hypervascularity. This indicates diffusethyroid disease. Correlate for thyroiditis symptoms and labs. TR2 bilateral nodules are considered degenerative colloid. These arebenign. Okay to do a one-year follow-up ultrasound for the thyroid disease. Ordered By: CARMELITA MENDOZA Interpreted By: Biju Mccallum MD, 07/07/2024 9:56 AM us Carmelita Mendoza MD ULTRASOUND Final Resul t * XR SHOULDER LT 3V (07/03/2024 3:41 PM OPTIC FIBRE DRAWER) Anatomical Region Laterality Modality Shoulder Radiographic Sagrario ging 07/03/2024 3:45 PM OPTIC FIBRE DRAWER Impressions 07/03/2024 3:46 PM OPTIC FIBRE DRAWER IMPRESSION: Unremarkable Ordered By: AIDA COOK Interpreted By: Biju Mccallum MD, 07/03/2024 3:45 PM Narrative 07/03/2024 3:46 PM OPTIC FIBRE DRAWER [address] [place] [address] Examination: XR ELBOW LT M3V, XR HUMERUS LT MIN 2V, XR SHOULDER LT 3V Exam time: 07/03/2024 3:41 PM Indication: Fall down stairs on 06-27-23, Pain to left arm. Comparison: none Technique: 3 views left elbow. 2 views left humerus. 3 views left shoulder. Findings: Very minimal arthritic changes seen at the shoulder and elbow. No fracture or dislocation. No effusions or significant tissue swelling seen. No radiodense foreign bodies or gas. Procedure Note Biju Mccallum MD - 07/03/[address] [place] [address] Examination: XR ELBOW LT M3V, XR HUMERUS LT MIN 2V, XR SHOULDER LT 3V Exam time: 07/03/2024 3:41 PM Indication: Fall down stairs on 06-27-23, Pain to left arm. Comparison: none Technique: 3 views left elbow. 2 views left humerus. 3 views leftshoulder. Findings: Very minimal arthritic changes seen at the shoulder and elbow.No fracture or dislocation. No effusions or significant tissue swellingseen. No radiodense foreign bodies or gas. IMPRESSION: Unremarkable Ordered By: AIDA COOK Interpreted By: Biju Mccallum MD, 07/03/2024 3:45 PM us Aida Cook TELEVISION REPAIR TEACHER GENERAL IMAGING Final Result * XR HUMERUS LT MIN 2V (07/03/2024 3:41 PM OPTIC FIBRE DRAWER) Anatomical Region Laterality Modality Humerus Radiographic Sagrario ging 07/03/2024 3:45 PM OPTIC FIBRE DRAWER Impressions 07/03/2024 3:46 PM OPTIC FIBRE DRAWER IMPRESSION: Unremarkable Ordered By: AIDA COOK Interpreted By: Biju Mccallum MD, 07/03/2024 3:45 PM Narrative 07/03/2024 3:46 PM OPTIC FIBRE DRAWER [address] [place] [address] Examination: XR ELBOW LT M3V, XR HUMERUS LT MIN 2V, XR SHOULDER LT 3V Exam time: 07/03/2024 3:41 PM Indication: Fall down stairs on 06-27-23, Pain to left arm. Comparison: none Technique: 3 views left elbow. 2 views left humerus. 3 views left shoulder. Findings: Very minimal arthritic changes seen at the shoulder and elbow. No fracture or dislocation. No effusions or significant tissue swelling seen. No radiodense foreign bodies or gas. Procedure Note Biju Mccallum MD - 07/03/[address] [place] [address] Examination: XR ELBOW LT M3V, XR HUMERUS LT MIN 2V, XR SHOULDER LT 3V Exam time: 07/03/2024 3:41 PM Indication: Fall down stairs on 06-27-23, Pain to left arm. Comparison: none Technique: 3 views left elbow. 2 views left humerus. 3 views leftshoulder. Findings: Very minimal arthritic changes seen at the shoulder and elbow.No fracture or dislocation. No effusions or significant tissue swellingseen. No radiodense foreign bodies or gas. IMPRESSION: Unremarkable Ordered By: AIDA COOK Interpreted By: Biju Mccallum MD, 07/03/2024 3:45 PM us Aida Cook TELEVISION REPAIR TEACHER GENERAL IMAGING Final Result * XR ELBOW LT M3V (07/03/2024 3:41 PM OPTIC FIBRE DRAWER) Anatomical Region Laterality Modality Elbow Radiographic Sagrario ging 07/03/2024 3:45 PM OPTIC FIBRE DRAWER Impressions 07/03/2024 3:46 PM OPTIC FIBRE DRAWER IMPRESSION: Unremarkable Ordered By: AIDA COOK Interpreted By: Biju Mccallum MD, 07/03/2024 3:45 PM Narrative 07/03/2024 3:46 PM OPTIC FIBRE DRAWER [address] [place] [address] Examination: XR ELBOW LT M3V, XR HUMERUS LT MIN 2V, XR SHOULDER LT 3V Exam time: 07/03/2024 3:41 PM Indication: Fall down stairs on 06-27-23, Pain to left arm. Comparison: none Technique: 3 views left elbow. 2 views left humerus. 3 views left shoulder. Findings: Very minimal arthritic changes seen at the shoulder and elbow. No fracture or dislocation. No effusions or significant tissue swelling seen. No radiodense foreign bodies or gas. Procedure Note Biju Mccallum MD - 07/03/[address] [place] [address] Examination: XR ELBOW LT M3V, XR HUMERUS LT MIN 2V, XR SHOULDER LT 3V Exam time: 07/03/2024 3:41 PM Indication: Fall down stairs on 06-27-23, Pain to left arm. Comparison: none Technique: 3 views left elbow. 2 views left humerus. 3 views leftshoulder. Findings: Very minimal arthritic changes seen at the shoulder and elbow.No fracture or dislocation. No effusions or significant tissue swellingseen. No radiodense foreign bodies or gas. IMPRESSION: Unremarkable Ordered By: AIDA COOK Interpreted By: Biju Mccallum MD, 07/03/2024 3:45 PM Aida Cook TELEVISION REPAIR TEACHER GENERAL IMAGING Final Result * MG SCREENING W MARBELLA NAZ DIGI (05/05/2024 12:40 PM OPTIC FIBRE DRAWER) Anatomical Region Laterality Modality Breast Bilateral Mammography 05/05/2024 2:52 PM OPTIC FIBRE DRAWER Impressions 05/05/2024 2:53 PM OPTIC FIBRE DRAWER IMPRESSION: No suspicious change since the previous exams. Recommendation: 1: Routine Screening Bilateral in 1 Year Assessment: ACR BI-RADS 2 - BENIGN FINDING(S) Ordered By: CARMELITA MENDOZA Interpreted By: Jefry Campbell MD, 05/05/2024 2:52 PM Narrative 05/05/2024 2:53 PM OPTIC FIBRE DRAWER [address] [place] [address] Examination: Digital screening mammogram with CAD. Clinical history: Asymptomatic patient presents for routine screening. Comparison: 02/23/2023, 09/26/2021, 09/10/2020, 06/30/2019. Technique: Bilateral digital mammograms. The exam was interpreted with the use of a computer-aided detection (CAD) system. Additional 3-D tomosynthesis images were acquired. Tissue density: The breast tissue contains scattered fibroglandular densities. Findings: The breast tissue contains scattered fibroglandular densities. Benign-appearing calcification noted. No suspicious mass, microcalcification or area of architectural distortion can be identified. From a mammographic standpoint, routine followup in one year would seem adequate. 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
--- OUTSIDE RECORDS SUMMARY | 2024-09-27 00:06 | XMS_ITS | Encounter Summary ---
Author Organization [facility] Address [address] [place] [address] Care Team Providers Care Applique Cutter Name Role Phone Darshan Mendoza MD Primary Care Provider [phone] Encounter Details Date Type Department Care Team (Late st Contact Info) Description 05/14/2020 [email or web address] [address] Silviano Nguyen MD [address] [place] [address] Visit Follow Up Social History Tobacco Use [...] Sex Assigned at Female 07/06/2024 5:18 PM LAB NURSE Legal Sex Female 9:05 PM LAB NURSE Gender Identity Not on file Sexual Orientation Not on file COVID-19 Exposure Response Date Recorded In the last month, have you been in contact with someone who was confirmed or suspected to have Coronavirus / COVID-19? No / Unsure 05/14/2020 9:38 AM LAB NURSE documented as of this encounter Plan of Treatment Not on file documented as of this encounter Visit Diagnoses Not on filedocumented in this encounter Additional Health Concerns Infection Onset Date Last Indicated Resolved Time MRSA 07/06/2018 07/06/2018 documented as of this encounter Care Teams Applique Cutter Relationship Specialty Start Date End Date Darshan Mendoza MD [address] [place] [phone] PCP - General FAMILY PRACTICE 02/09/19 documented as of this encounter
--- OUTSIDE RECORDS SUMMARY | 2024-09-27 00:06 | XMS_ITS | Clinical Summary ---
Author Organization [facility] Address [address] [place] [id number] Phone Care Team Providers Care Assembler Molded Frames Name Role Phone Unavailable Primary Care Provider Unavailabl e Allergies No known active allergies Medications estradiol (ESTRACE) 1 mg Oral tablet Take 1 mg by mouth daily. Active hydrochlorothiaz prieto (HYDRODIURIL) 12.5 mg Oral tablet Take 12.5 mg by mouth daily. Active naproxen (NAPROSYN) 500 mg Oral tablet Take 500 mg by mouth 1 time daily as needed. 10/13/2010 Active acetaminophen-ca ffeine-butalbita l (FIORICET) 325-40-50 mg Oral tablet Take 1 Tab by mouth every 4 hours as needed. Active Social History Tobacco Use Types Packs/Day Years Used Date Smoking Tobacco: Never Smokeless Tobacco: Never Alcohol Use Standard Drinks/Week Comments No 0 (1 standard drink = 0.6 oz pur e alcohol) Comments Unknown Sex and Gender Information Value Date Recorded Sex Assigned at Not on file Legal Sex Female 3:41 AM MANAGER INVENTORY MANAGEMENT Gender Identity Not on file Sexual Orientation Not on file Last Filed Vital Signs Vital Sign Reading Time Taken Comments Blood Pressure 139/68 10/17/2010 5:56 AM CDT Pulse 66 10/17/2010 5:56 AM CDT Temperature 36.7 C (98 F) 10/17/2010 5:56 AM CDT Respiratory Rate 16 10/17/2010 5:56 AM CDT Oxygen Saturation 96% 10/17/2010 5:56 AM CDT Inhaled Oxygen Concentration - - Weight 139.3 kg (307 lb) 10/16/2010 6:23 AM CDT Height 166.4 cm (5' 5.5 ) 10/13/2010 10:20 AM CD T Body Mass Index 50.31 10/13/2010 10:20 AM CDT Plan of Treatment Health Maintenance Due Date Last Done Comments DTAP/TDAP/TD VACCINES (1 - Tdap) 1992 HEPATITIS B VACCINES (1 of 3 - 19+ 3-dose series) 10/1991 BREAST CANCER SCREENING 2013 COLORECTAL SCREENING 2018 Colorectal Cancer Screening 2018 FIT-DNA Q 3 years 2018 FIT/FOBT Q 1 year 2018 Flex Sig/CT Colonography Q 5 years 2018 ZOSTER VACCINE (1 of 2) 2023 INFLUENZA VACCINE (#1) 2024 Medical Devices Implanted Type Area Gasser Machine Operator Device Identifier Shelf Expiration Date Model / Serial / Lot Log [id number] - Ear Implant Tray - 1 - Pros Piston Lippy Mod Cupped [id number] Implanted:Qty: 1 on 10/16/2010 at [facility] Ear Right: Ear [place] [employer] 06/11/[id number] / / [id number] Insurance [employer] ACCESS/TRUE BLUE PPO Advance Directives For more information, please contact: [phone] * Full Code (Latest Code Status on File) Date Activated Date Inactivated Comments 10/16/2010 9:36 AM 10/17/2010 8:19 AM * Full Code Date Activated Date Inactivated Comments 10/16/2010 6:09 AM 10/16/2010 9:36 AM
--- OUTSIDE RECORDS SUMMARY | 2024-09-27 00:06 | XMS_ITS | Clinical Summary ---
Author Organization [facility] [employer] Address [address] [place] [address] Care Team Providers Care Pipe Joints Supervisor Name Role Phone Darshan Mendoza MD Primary Care Provider Unav ailable Source Comments [facility] [employer],non-owned Affiliates and Associated Physician Practices is amultiple site organization consisting of ambulatory clinics and hospital sitesin [place], [place], [place] and [place]. This disclosure is being madepursuant to the Care Everywhere program and may not contain all information available regarding this patient. Last updated 18.[facility] [employer] Allergies No known active allergies Medications * Be aware that medications may not be up to date on this document. Alwaysverify current medications with the patient. Medication Sig Dispensed Refills Start Date End Date Status estradiol (ESTRACE) 1 MG tablet Take 1 mg by mouth once daily Active lisinopril (PRINIVIL; ZESTRIL) 20 MG tablet Take 20 mg by mouth once daily Active esomeprazole (NEXIUM) 40 MG capsule Take 40 mg by mouth 2 times daily,before breakfast and supper Active Biotin 1000 MCG Active Cyanocobalamin (B-12) 100 MCG Active multivitamin daily (THERAGRAN) tablet Take 1 Tab by mouth daily with food Active cyanocobalamin (VITAMIN B-12) injection INJECT 1 ML EVERY MONTH UTD 12 12/30/2015 Active cyclobenzaprine (FLEXERIL) 10 MG tablet 12/08/2015 Active predniSONE (DELTASONE) 5 MG tablet Take 1 Tab by mouth 2 times daily 60 Tab 5 01/08/2016 Active meloxicam (MOBIC) 7.5 MG tablet Take 1 Tab by mouth once daily 30 Tab 2 01/08/2016 Active Active Problems Problem Noted Date Diagnosed Date Sarcoidosis 01/08/2016 Family History Medical History Relation Name Comments Cancer Father Heart Failure Father Hypertension Father Heart Failure Mother Hypertension Mother Hypertension Sister 3 Relation Name Status Comments Brother Alive Father Mother Alive Sister 1 Alive Sister 2 Alive Sister 3 Social History Tobacco Use Types Packs/Day Years Used Date Smoking Tobacco: Never Alcohol Use Standard Drinks/Week Comments No 0 (1 standard drink = 0.6 oz pur e alcohol) Sex and Gender Information Value Date Recorded Sex Assigned at Not on file Gender Identity Not on file Sexual Orientation Not on file Last Filed Vital Signs Vital Sign Reading Time Taken Comments Blood Pressure 94/70 01/08/2016 2:05 PM CDT Pulse 60 01/08/2016 2:05 PM CDT Temperature - - Respiratory Rate - - Oxygen Saturation - - Inhaled Oxygen Concentration - - Weight 101 kg (222 lb 9.6 oz) 01/08/2016 2:05 PM CDT Height 165.1 cm (5' 5 ) 01/08/2016 2:05 PM CDT Body Mass Index 37.04 01/08/2016 2:05 PM CDT Plan of Treatment Health Maintenance Due Date Last Done Comments COLOGUARD (AGES 45-75) - COL ON CA SCREENING 1973 COLON MONITORING 1973 COLONOSCOPY - COLON CA SCREENING 1973 CT COLONOGRAPHY - COLON CA SCREENING 1973 Colorectal Cancer Screening 1973 FIT - COLON CA SCREENING 1973 FLEX SIG - COLON CA SCREENING 1973 LIPID TESTING 1973 MAMMOGRAM 1973 PAP SMEAR 1973 HIV SCREENING 1988 HEPATITIS C SCREENING 05/21/1991 DTAP/TDAP/TD VACCINES (1 - Tdap) 1992 HEPATITIS B VACCINE (1 of 3 - 19+ 3-dose series) 1992 PNEUMOCOCCAL VACCINE 50+ (1 of 1 - PCV) 2023 ZOSTER VACCINE (1 of 2) 2023 COVID-19 VACCINE (1 - 2023-2 5 season) 2024 DEPRESSION SCREENING 06/21/2024 INFLUENZA VACCINE (Season Ended) 2025 HIB VACCINE Aged Out No longer eligi ble based on patient's age to complete this topic HPV VACCINE Aged Out No longer eligi ble based on patient's age to complete this topic MENINGOCOCCAL (Group B) VACC INE SHARED DECISION-MAKING Aged Out No longer eligibl e based on patient's age to complete this topic MENINGOCOCCAL GROUPS A/C/Y/W VACCINE Aged Out No longer eligible b ased on patient's age to complete this topic PNEUMOCOCCAL VACCINE Aged Out No long er eligible based on patient's age to complete this topic Care Teams Pipe Joints Supervisor Relationship Specialty Start Date End Date Darshan Mendoza MD [facility] [place] [address] PCP - General 12/05/15
--- OUTSIDE RECORDS SUMMARY | 2024-09-27 00:06 | XMS_ITS | Clinical Summary ---
Author Organization [facility] [employer] Address [address] [place] [address] Care Team Providers Care Dressage Judge Name Role Phone Darshan Mendoza MD Primary Care Provider [phone] Eli Baer DPT Unavailable [phone] Misty Barroso DPM Unavailable [phone] Allergies Active Allergy Reactions Criticality Noted Date [...] 0.01 % (0.1 mg/gram) vaginal cream Apply / applicator (1g) to the vagina 2-3 times per week (such as Wednesday//Wednesday) 42.5 g 3 4 Active Active Problems Problem Noted Date Diagnosed Date Dermatofibroma of left lower leg 10/02/2022 Overview (10/02/2022): Added automatically from request for surgery [id number] Crushing injury of multiple sites of trunk 10/02 Overview (10/02/2022): Added automatically from request for surgery [id number] Hip pain, bilateral 07/27/2019 Pelvic floor dysfunction in female 07/27/2019 Mixed stress and urge urinary incontinence 07/27 Sarcoidosis 01/08/2016 Inflammation of sacroiliac joint 03/07/2014 Sciatica 03/07/2014 Degeneration of intervertebral disc of lumbar re gion 02/13/2014 Osteoarthritis of lumbar spine 02/13/2014 Fatigue 02/08/2014 Heartburn 02/08/2014 Seizure 02/08/2014 Lumbago 02/08/2014 Chronic pain 02/08/2014 Hypertension 08/10/2011 Obesity 10/30/2010 Surgical History Surgery Date Site/Laterality Comments VT CHOLECYSTECTOMY Cholecystectomy - (Added by TW Conv) VT STAPEDECTOMY/STAPEDOTOMY Stapedotomy - (Added by TW Conv) VT NEUROPLASTY &/TRANSPOS MEDIAN NRV CARPAL TUNNE Neuroplasty Decompression Median Nerve At Carpal Tunnel - left hand (Added by TW Conv) VT TOTAL ABDOMINAL HYSTERECT W/WO RMVL TUBE OVARY Total Abdominal Hysterectomy - (Added by TW Conv) BACK SURGERY pinched nerver at the lumbar region HYSTERECTOMY 12/03/2003 abdominally BUNIONECTOMY Left SLEEVE GASTROPLASTY gastric sleeve DILATION AND CURETTAGE OF UTERUS Medical History Medical History Date Comments Ear problems Fractures ankle, elbow GI problem Acid reflux Joint pain Incontinence urinary Pelvic floor dysfunction PONV (postoperative nausea and vomiting) Hypertension GERD (gastroesophageal reflux disease) Seizures (HCC) patient stated w hen she was younger Carpal tunnel syndrome Migraine Endometriosis Urinary incontinence Family History Medical History Relation Name Comments Heart disease Father Hypertension Father Pancreatic cancer Father Diabetes Father's Brother Hypertension Mother Breast cancer Mother's Sister Kidney cancer Mother's Sister Hypertension Sister Polycystic kidney disease Sister Relation Name Status Comments Father Father's Brother Mother Mother's Sister Sister Social History Tobacco Use Types Packs/Day Years [...] you are drinking? 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 [employer] Gender Identity Not on file Sexual Orientation Not on file Obstetrics History Para Term AB IAB SAB Ectopic Multiple Livin g Live Births 3 3 3 3 3 Date Outcome GA Total Labor Labor/2nd/3rd Weight Sex Type Anes PTL Angelica A1 A5 Name Clin Term Vag-S pont Living Term Vag-S pont Living Term Vag-S pont Living Last Filed Vital Signs Vital Sign Reading [...] 09/13/2023 9:57 AM CDT Plan of Treatment Health Maintenance Due Date Last Done Comments Breast Cancer Screening-Mammogram 1973 Colon Cancer Screening-Colonoscopy 1973 Depression Screening 1973 Hepatitis C Screening 1973 DTaP/Tdap/Td Vaccine (1 - Tdap) 1984 Hepatitis B Screening 1991 Regular Well Visit/Exam 18-64 1991 Zoster Vaccine (1 of 2) 2023 Influenza Vaccine (#1) 2024 06/30/2019 Pneumococcal vaccine <65 Aged Out No longer eligible based on patient's age to complete this topic Medical Devices Implanted Type Area Payroll Auditor Device Identifier Shelf Expiration Date Model / Serial / Lot Stapes Right: Ear Insurance ANTHEM ACCESS ANTHEM ACCESS Member Subscriber Plan / Payer (Ef fective 2022-Present) Name:Rhys Peralta Relation to Subscriber:Spouse Name:JOCELYN PERALTA Date of :1972 (Home) Address: [address] [place] [address] Payer ID:[id number] (NAIC) Type:BC ALLIANCE Address: [facility] [address] [place] [id number] Advance Directives For more information, please contact: [phone] * Full Code (Latest Code Status on File) Date Activated Date Inactivated Comments 10/07/2022 11:26 AM 10/07/2022 4:58 PM Care Teams Dressage Judge Relationship Specialty Start Date End Date Darshan Mendoza MD [address] [facility] [address] PCP - General Family Medicine 07/11/19 Eli Baer DPT [id number] [facility] [address] [place] [address] Physical Therapist Physical Therapy 09/19/19 Misty Barroso DPM [address] [place] [address] Consulting Physician Foot and Ankle Surg 05/21/22
--- NOTE | 2024-09-27 06:37 | WPDHPUPDATE1 ---
History and Physical Update Update Date/Time: 09/27/24 06:37 Patient seen and examined in pre-operative holding area. No interval change in medical history or symptoms. Patient recalls previous discussion of benefits and alternatives to procedure. Continues to desire to proceed with right endoscopic possible open carpal tunnel release and right cubital tunnel release. Reviewed procedure, post-op expectations and risks including but not limited to bleeding, infection, injury to tendon/nerve/vessel, decreased hand function, stiffness, RSD, no change or worsening of symptoms. I discussed the possible use of assistants and their participation in the case. Patient stated understanding and signed the consent form wishing to proceed.
--- NOTE | 2024-09-27 06:38 | W.PM.PROC2 ---
Procedure Note - Detailed Date of Procedure 09/27/24 Pre-op Diagnosis Right Carpal and Cubital Tunnel Syndrome Post-op Diagnosis Same Procedure Performed right ectr and CuTR Surgeon Jose Chi MD Controls Design Engineer sonja maddox pa-c Anesthesia MAC Description of Procedure INFORMED CONSENT: The patient was seen and examined and marked in the pre-op area.? The patient signed the consent form. PROCEDURE IN DETAIL:The patient taken back to OR on the stretcher in supine position. Time out performed with anesthesia, surgeon and staff agreeing on patient's name site and surgery to be performed SCDs were placed on the lower extremities and inflated. A tourniquet was placed on {right} upper extremity and antibiotics given IV After anesthesia administered sedation I injected {10}cc 1%lido with epi and 0.5% marcaine plain at the operative sites The?{right upper extremity?was prepped and draped in sterile fashion the??{right upper extremity} was? exsanguinated with Esmarch bandage and tourniquet inflated to 250mmHg I made a transverse incision in the {right} volar distal wrist crease through skin and dermis with 15 blade scalpel.? Littler scissors spread down to antebrachial fascia. A small incision was made in antebrachial fascia allowing access to Carpal tunnel. I proceeded with sequential dilation staying in line with the ring finger and hugging the hook of the hamate.? I then used the synovial elevator to free any adhesions from the underside of the transverse carpal ligament. Next I was able to insert the Microaire endoscopic carpal tunnel device with direct visualization of the transverse fibers on the monitor and proceeded with complete segmental retrograde release of the ligament in its entirety.? I irrigated with normal saline and closed with 4-0 monocryl for dermis and subcuticular closure. I next proceeded with making a longitudinal incision between two heads for flexor carpi ulnaris at end of {right} cubital tunnel with 15 blade scalpel.? Littler scissors were used to spread down to FCU fascia.? An incision was made in FCU fascia and ulnar nerve identified exiting cubital tunnel.? I proceeded with complete retrograde release of the cubital tunnel including 7cm proximal for the intermuscular septum.? The nerve appeared healthy with visible vaso nervorum.? There was no subluxation on full elbow range of motion. ? I irrigated with normal saline and closure with 4-0 monocryl for dermis and subcuticular. The incisions were covered with Dermabond then 4x4s, abad, and a volar wrist posterior elbow splint for patient safety, security and comfort and secured with steven bandages after the tourniquet was let down noting the hand was warm and well perfused.? Patient awaken from anesthesia and transferred to recovery in stable condition Complications - none EBL- 1cc Disposition - home in stable conditions Sonja Maddox PA-C was essential for positionig, retraction, closure and dressing placement [facility] Billing Surgery - Charge Forward: Surgery Billing ([id number] same for sonja adding modifier )
[2024-09-27 07:10] VITALS: BP 142/62; PULSE 66; RESP 16; TEMP 36.4; O2SAT 100; BMI 31.0
[2024-09-27] MEDS: LACTATED RINGERS 1,000 ML 30 ML IV CONT (07:28)
--- NOTE | 2024-09-27 07:53 | P.PNAN_ITS ---
Anes - Initial Pre Proc Eval Procedure: Operation Date: 09/27/24 08:15 Proposed Procedures p Right Endoscopic Carpal Tunnel Release Possible Open, Right Cubital Tunnel Release - Jose Chi MD Date/Time: 09/27/24 07:53 Surgeon: Jose Chi MD Pre Op Diagnosis: Right Carpal and Cubital Tunnel Syndrome Patient Data Age: 49 Gender: F Height: 1.65 m Weight: 84.7 kg Last Vital Signs Temp 36.4 C 09/27/24 07:10 Pulse 66 09/27/24 07:10 Resp 16 09/27/24 07:10 BP 142/62 H 09/27/24 07:10 Pulse Ox 100 09/27/24 07:10 O2 Del Method Room Air 09/27/24 07:10 Allergies Allergy/AdvReac Type Severity Reaction Status Date / Time NSAIDS (Non-Steroidal Allergy Unknown Unknown Verified 09/27/24 07:40 Anti-Inflamma Home Medications ?Medication ?Instructions ?Recorded ?Confirmed ?Type ergocalciferol (vitamin D2) 400 400 unit PO DAILY 06/27/20 09/27/24 History unit capsule mecobalamin (vitamin B12) 1,000 1,000 mcg PO DAILY 06/27/20 09/27/24 History mcg chewable tablet multivitamin 1 tablet PO DAILY 06/27/20 09/27/24 History semaglutide (weight loss) [Wegovy] 2.4 mg subcut WEEKLY 02/05/22 09/19/24 History sertraline 50 mg tablet 50 mg PO DAILY 02/05/22 09/27/24 History colestipol 1 gram tablet (Colestid) 1 g PO BID #60 tabs 01/11/24 09/27/24 Rx estradiol 0.5 mg/0.5 gram (0.1 %) 1 packet transdermal DAILY 01/11/24 09/19/24 History transdermal gel packet lansoprazole 30 mg capsule,delayed 30 mg PO BID 90 days #180 caps 03/16/24 09/27/24 Rx release ubrogepant 100 mg tablet (Ubrelvy) 100 mg PO ONCE PRN migraine 09/19/24 09/27/24 History headache Patient hx anesthesia problems: none Family hx anesthesia problems: none Results Review: All pre-operative results and documents have been reviewed as part of the pre- operative evaluation. [facility] Past Medical History Medical History FH: total abdominal hysterectomy and bilateral salpingo-oophorectomy Anxiety HTN (hypertension) Hearing loss Vertigo Tendinitis of left rotator cuff Impingement syndrome, shoulder, left Left shoulder pain GERD (gastroesophageal reflux disease) Seizure none since 2009 Surgical History Surgical History History of carpal tunnel release 2005 History of cholecystectomy [address] Oliver History of hysterectomy [address] Powers History of gastric bypass 2014 Family History Family History Other Arthritis Asthma Heart disease Hypertension Social History Social History Smoking status: Never smoker Alcohol intake: never Substance use: never Substance use type: does not use Living arrangements: with family Occupation/Education: occupation Gender identity (if verbalized by the patient): Female Spiritual care concerns: No Anes - Eval Final PreProcedure Day of Procedure 09/27/24 07:53 Patient weight: obese Heart: regular rate and rhythm Lungs: clear to auscultation Airway: Mallampati scale class II Neurological: alert and oriented Last oral intake: >/= 8 hours ASA classification: III Emergent: no Anesthetic plan: proceed Anesthesia type and monitoring: general GIVS and standard monitoring Results Review: All pre-operative results and documents have been reviewed as part of the pre- operative evaluation. Informed Consent: The patient's anesthetic plan and its attendant risks and benefits were discussed with the patient/family/POA. Questions were solicited and answers provided to the satisfaction of the patient/family/POA.
[2024-09-27] MEDS: ceFAZolin 2 GM/D5W 50 ML 2 GM/50 ML BAG IVPB (08:25)
[2024-09-27] MEDS: LIDO 1%/EPINEPHRINE 1:100,000 50 ML VIAL 10 ML INFILTRATE (08:25)
[2024-09-27] MEDS: BUPivacaine HCL 0.5% 10 ML AMP INFILTRATE (08:25)
[2024-09-27 09:02] VITALS: BP 119/54; PULSE 65; RESP 12; O2SAT 98
[2024-09-27 09:30] VITALS: BP 114/66; PULSE 58; RESP 20
[2024-09-27 10:00] VITALS: BP 121/63; PULSE 58; RESP 20
[2024-09-27 10:15] VITALS: BP 114/66; PULSE 55; RESP 20
== END 2024-09-27 10:16 | disposition home or self-care (01) ==
PROVIDERS: PCP Family Medicine; Visit Provider Plastic Surgery
PROC: 01N54ZZ Release Median Nerve, Percutaneous Endoscopic Approach (ICD-10-PCS; CPT 29848; principal; 2024-09-27 08:15)
DX: G56.01 Carpal tunnel syndrome, right upper limb (principal); G56.21 Lesion of ulnar nerve, right upper limb; E66.9 Obesity, unspecified; Z68.31 Body mass index [BMI] 31.0-31.9, adult
CPT/HCPCS: 29848; 64718; J0690; J2004; J2250; J2704; J7120